=== PATIENT | female | born 1985 | race Caucasian/White ===

== ENCOUNTER 2020-02-02 15:06 | Emergency (ER) | payer OTHER ==
[~2020-02-02] VITALS: Ht 157.5 cm; Wt 62.6 kg
[2020-02-02] MEDS ORDERED: PRENATAL 19 TA1 EACH (15:20)
[2020-02-02] MEDS ORDERED: VITAMIN C60 MG (15:21)
== END 2020-02-02 18:33 | disposition home or self-care (01) ==
LOC: ER 15:06
DX: O20.8 Other hemorrhage in early pregnancy (principal)

== ENCOUNTER → 2020-04-12 | Outpatient (CLI) | payer OTHER ==
[~2020-04-12] MED LIST: PRENATAL 19 TA1 EACH; VITAMIN C60 MG
== END | disposition home or self-care (01) ==
LOC: PRENATAL 08:00
PROVIDERS: ATTEND Obstetrics & Gynecology Maternal & Fetal Medicine
DX: O35.3XX0 Maternal care for (suspected) damage to fetus from viral disease in mother, not applicable or unspecified (principal); O34.42 Maternal care for other abnormalities of cervix, second trimester; O43.92 Unspecified placental disorder, second trimester; Z36.89 Encounter for other specified antenatal screening

== ENCOUNTER → 2020-05-11 | Outpatient (CLI) | payer OTHER | END | disposition home or self-care (01) | LOC: PRENATAL 14:30 | PROVIDERS: ATTEND Obstetrics & Gynecology | DX: O26.842 Uterine size-date discrepancy, second trimester (principal); O34.42 Maternal care for other abnormalities of cervix, second trimester; O43.92 Unspecified placental disorder, second trimester; O09.92 Supervision of high risk pregnancy, unspecified, second trimester; O09.212 Supervision of pregnancy with history of pre-term labor, second trimester ==

== ENCOUNTER 2020-06-02 00:48 | Emergency (ER) | payer OTHER ==
[~2020-06-02] VITALS: Ht 162.6 cm; Wt 70.3 kg
[2020-06-02] MEDS ORDERED: ASPIR 8181 MG (01:04)
== END 2020-06-02 02:59 | disposition home or self-care (01) ==
LOC: ER 00:48
DX: R04.0 Epistaxis (principal)

== ENCOUNTER → 2020-07-06 | Outpatient (CLI) | payer OTHER ==
[~2020-07-06] MED LIST changes: +ASPIR 8181 MG
== END | disposition home or self-care (01) ==
LOC: PRENATAL 08:24
PROVIDERS: ATTEND Obstetrics & Gynecology Maternal & Fetal Medicine
DX: O26.843 Uterine size-date discrepancy, third trimester (principal); O09.213 Supervision of pregnancy with history of pre-term labor, third trimester; Z36.89 Encounter for other specified antenatal screening; Z3A.31 31 weeks gestation of pregnancy

== ENCOUNTER 2020-08-19 14:45 | Inpatient (IN) | payer OTHER ==
[~2020-08-19] VITALS: Ht 157.5 cm; Wt 2.7 kg
[2020-08-31] MEDS ORDERED: CHILDREN'S ASPI81 MG PO (14:57)
[2020-08-31] MEDS ORDERED: FOLIC ACID0.8 M1 PO (14:58)
[2020-09-03] MEDS ORDERED: COLACE100 MG PO (13:48)
[2020-09-03] MEDS ORDERED: SIMETHICONE125 M1 PO (13:50)
[2020-09-03] MEDS ORDERED: IBU800 MG PO (13:50)
== END 2020-09-03 14:13 | DRG 788 ==
LOC: ADM 14:45 → EDSTATUS 14:45 → LDR 08-31 06:13 → SURG-SUITE 09-01 19:06 → OB/GYN 09-07 14:45
PROVIDERS: Obstetrics & Gynecology; ADMIT Student in an Organized Health Care Education/Training Program; ATTEND Student in an Organized Health Care Education/Training Program
PROC: 4A0HXFZ Measurement of Products of Conception, Cardiac Rhythm, External Approach (ICD-10-PCS; 2020-08-31)
PROC: 3E033VJ Introduction of Other Hormone into Peripheral Vein, Percutaneous Approach (ICD-10-PCS; 2020-08-31)
PROC: 10D00Z1 Extraction of Products of Conception, Low, Open Approach (ICD-10-PCS; principal; 2020-08-31 17:15)
DX: O14.14 Severe pre-eclampsia complicating childbirth (principal); Z3A.39 39 weeks gestation of pregnancy; Z37.0 Single live birth; Z20.828 Contact with and (suspected) exposure to other viral communicable diseases

== ENCOUNTER 2022-04-28 07:00 | Day surgery (SDC) | payer OTHER ==
[~2022-04-28 07:00] MED LIST changes: +CHILDREN'S ASPI81 MG PO; +COLACE100 MG PO; +FOLIC ACID0.8 M1 PO; +IBU800 MG PO; +SIMETHICONE125 M1 PO
== END 2022-04-28 18:40 | disposition home or self-care (01) ==
LOC: CIR.AMB 07:00
PROVIDERS: ATTEND Obstetrics & Gynecology
DX: O02.1 Missed abortion (principal); Z20.822 Contact with and (suspected) exposure to COVID-19